=== PATIENT | female | born 1945 | race Caucasian/White ===

== ENCOUNTER 2023-03-29 15:25 | Emergency (ER) | payer OTHER ==
[~2023-03-29] VITALS: Ht 160 cm; Wt 68.0 kg
[2023-03-29 15:32] VITALS: BP_SYST 136; PULSE 85; RESP 22; TEMP 98.3; O2SAT 98
[2023-03-29 16:38] VITALS: BP_SYST 122; PULSE 75; RESP 18; TEMP 98.3; O2SAT 97
== END 2023-03-29 16:50 | disposition home or self-care (01) ==
LOC: SED 15:25
DX: H54.62 Unqualified visual loss, left eye, normal vision right eye (principal); E11.9 Type 2 diabetes mellitus without complications; Z79.899 Other long term (current) drug therapy
CPT/HCPCS: 99281; 99282